=== PATIENT | male | born 1985 | race African-American/Black ===

== ENCOUNTER 2016-12-28 16:04 | Emergency (ER) | payer OTHER ==
[~2016-12-28] VITALS: Ht 182.9 cm; Wt 81.4 kg
[2016-12-28] MEDS ORDERED: [UNRECOGNIZED DRUG - CODE] PO (16:15)
[2016-12-28] MEDS ORDERED: ONDANSETRON 4MG/2ML VIAL (J2405) IV ONE (16:30)
[2016-12-28] MEDS ORDERED: NS 1,000 ML IV ONE (16:30)
[2016-12-28] MEDS ORDERED: KETOROLAC 30 MG/ML VIAL (J1885) IV ONE (16:30)
[2016-12-28 16:56] LABS: BASO % 0.8 % (0.0-1.0); EOS # 0.2 K/mm3 (0.0-0.50); EOS % 2.5 % (0.0-3.0); LARGE UNSTAINED CELL # 0.2 K/mm3 (0.0-0.4); LARGE UNSTAINED CELL % 2.7 % (0.0-4.0); LYMPH # 2.2 K/mm3 (1.5-4.5); LYMPH % 33.4 % (24.0-44.0); MEAN CORPUSCULAR HEMOGLOBIN 31.3 pg (27.0-33.0); MEAN CORPUSCULAR HGB CONC 33.5 g/dl (32.0-36.5); MEAN CORPUSCULAR VOLUME 93.5 fl (80.0-96.0); MONO # 0.5 K/mm3 (0.0-0.8); MONO % 7.4 % (0.0-5.0); NEUTROPHILS # 3.4 K/mm3 (1.8-7.7); NEUTROPHILS % 53.2 % (36.0-66.0); PLATELET COUNT, AUTOMATED 262 k/mm3 (150-450); RED CELL DISTRIBUTION WIDTH 12.1 % (11.5-14.5); WHITE BLOOD COUNT 6.5 K/mm3 (4.0-10.0)
--- NOTE | 2016-12-28 17:03 | REP ---
Clinical: Epigastric and abdominal pain. Technique: Upright view of the chest with supine and upright views of the abdomen and pelvis. Findings: Frontal upright view of the chest demonstrates no acute cardiopulmonary process or free air below the diaphragm to suspect pneumoperitoneum. Upright view of the abdomen demonstrates a few air-fluid levels which are nonspecific and early small bowel obstruction cannot definitively be excluded. No organomegaly. No abnormal calcifications. Skeletal structures are intact. Impression: Few air fluid levels cannot exclude early/partial obstruction versus enteritis. Signed by Ryan Young MD 12/28/2016 04:55 P
[2016-12-28 17:17] LABS: ALBUMIN 4.3 GM/DL (3.2-5.2); ALBUMIN/GLOBULIN RATIO 0.96 (1.00-1.93); ALKALINE PHOSPHATASE 87 U/L (45-117); ALT/SGPT 44 U/L (12-78); ANION GAP 5 MEQ/L (8-16); AST/SGOT 37 U/L (15-37); BILIRUBIN,DIRECT 0.1 MG/DL (0.0-0.2); BILIRUBIN,TOTAL 0.5 MG/DL (0.2-1.0); BLOOD UREA NITROGEN 14 MG/DL (7-18); CALCIUM LEVEL 8.9 MG/DL (8.5-10.1); CARBON DIOXIDE LEVEL 28 MEQ/L (21-32); CHLORIDE LEVEL 106 MEQ/L (98-107); CREATININE FOR GFR 1.41 MG/DL (0.70-1.30); GLOMERULAR FILTRATION RATE > 60.0 (>60); GLUCOSE, FASTING 78 MG/DL (70-105); POTASSIUM SERUM 3.6 MEQ/L (3.5-5.1); SODIUM LEVEL 139 MEQ/L (136-145); TOTAL PROTEIN 8.8 GM/DL (6.4-8.2)
[2016-12-28] MEDS ORDERED: ZOFR4TAB3 PO (17:27)
[2016-12-28 18:24] VITALS: BP 130/64
== END 2016-12-28 18:34 | disposition home or self-care (01) ==
LOC: M ED 16:04
DX: K52.9 Noninfective gastroenteritis and colitis, unspecified (principal); R11.2 Nausea with vomiting, unspecified; Z79.899 Other long term (current) drug therapy
CPT/HCPCS: 74022; 80048; 80076; 83605; 83690; 85025; 96361; 96374; 96375; 99283; G0463; J1885; J2405

== ENCOUNTER → 2016-12-28 | Outpatient (REF) | payer OTHER ==
[~2016-12-28] MED LIST: ZOFR4TAB3 PO; [UNRECOGNIZED DRUG - CODE] PO
== END ==
LOC: M SFHCLERA 14:31
PROVIDERS: ATTEND Nurse Practitioner Family
DX: R19.7 Diarrhea, unspecified (principal)

== ENCOUNTER → 2016-12-28 | Outpatient (CLI) | payer OTHER ==
--- NOTE | 2016-12-28 15:38 | REP ---
Acute abdominal series four views including the PA chest, upright abdomen, two views and supine abdomen single view: PA chest: Comparison is 10/10/2014. The lung moss are clear. Cardiac size is normal. The joby, mediastinum, and bony thorax are unremarkable. There is no free subdiaphragmatic air. No interval change. Impression: Negative PA chest. Abdomen, supine and upright views: There are multiple air-fluid levels in nondistended bowel loops. The bowel pattern is nonspecific and could represent ileus or ensuing obstruction. Follow-up is recommended. There are pelvic calcifications, likely phleboliths. The skeletal structures and soft tissues otherwise are unremarkable. Impression: Nonspecific bowel gas pattern. Signed by Nasir Nazario MD 12/28/2016 03:28 P
== END ==
LOC: M LRY 14:41
PROVIDERS: ATTEND Nurse Practitioner Family
DX: R19.7 Diarrhea, unspecified (principal)